=== PATIENT | female | born 1930 | race Caucasian/White ===

== ENCOUNTER 2018-07-03 19:06 | Emergency (ER) | payer MEDICARE, OTHER ==
[~2018-07-03 19:06] MED LIST: ACE500 PO; ACET-1966 PO; ACET-2043 PO; ACET500T68 PO; ASP325 PO; ASPI-1471 PO; ASPI-839 PO; ATOR10TA65 PO; ATR10 PO; AZI250 PO; BUDE10.2 INH; BUDE10.25 IH; BUDE3CAP6 PO; CALC-1 PO; CALC-478 PO; CALC600T59 PO; CLO75 PO; CYA1000 PO; CYAN100T31 PO; FLU30SYR8 IM ONLY; FLUT1DIS28 IH; FURO-45 PO; FURO20TA19 PO; GABA-490 PO; GABA-547 PO; LOR5 PO; LOR5/325 PO; LOSA100T69 PO; METH4TAB66 PO; METO25TA23 PO; METO25TA93 PO; MIRA50TA PO; MON10 PO; MULT-1 PO; MULT-27 PO; OMEP-125 PO; OMEP-153 PO; ONDA4TAB PO; ONDA4TAB97 PO; OXYB10TA16 PO; OXYB10TA21 PO; OXYB15TA14 PO; OXYGEN INH; OXYGENHOME INH; PRED-1 PO; RIVA1PAT9 TD; RIVA3CAP PO; SCOT TD; SPIR25TA76 PO; SPIR25TA80 PO; SULF500T48 PO; TRAM-420 PO; VALS-25 PO
--- NOTE | 2018-07-03 19:47 | ER Report ---
History and Physical Time Seen By MD: 19:44 Hx. of Stated Complaint: just feel drained HPI/ROS CHIEF COMPLAINT: Not feeling well HISTORY OF PRESENT ILLNESS: This is a 7-year-old female presents to the emergency department for not feeling well. Patient states that about 4:30 this afternoon she was sitting in her lazy boy chair, suddenly just did not "feel very well" patient states she stood up and became lightheaded but never did collapse's affect town and ultimately decided to come in for further evaluation. Patient denies chest pain or shortness of breath. No nausea or vomiting. No fevers or chills. She states she does have a very mild headache but otherwise no other concerns. Her blood pressure at the bedside is 196/93. REVIEW OF SYSTEMS: Constitutional: No fever, no chills. Eyes: No discharge. ENT: No sore throat. Cardiovascular: No chest pain, no palpitations. Respiratory: No cough, no shortness of breath. Gastrointestinal: No abdominal pain, no vomiting. Genitourinary: No hematuria. Musculoskeletal: No back pain. Skin: No rashes. Neurological: As above. Allergies: Coded Allergies: No Known Allergies (Verified Allergy, Mild, 07/03/18) Home Meds Active Scripts Rivastigmine Tartrate (RIVASTIGMINE) 3 Mg Capsule, 1 CAP PO BID for 90 Days, #180 CAPSULE 4 Refills Prov:JAMSHID VITAL MD 05/29/18 Budesonide (BUDESONIDE EC) 3 Mg Capdr...er, 1 CAP PO DAILY, #90 CAP Prov:JAMSHID VITAL MD 05/28/18 Sulfasalazine (SULFASALAZINE) 500 Mg Tablet, 1 TAB PO BID, #60 TAB 3 Refills PRN Prov:JAMSHID VITAL MD 01/22/18 Reported Medications Aspirin (ASPIR 81) 81 Mg Tablet.dr, 1 TAB PO QDAY 09/08/17 Calcium Carbonate/Vitamin D3 (CALTRATE 600 + D TABLET) 1 Each Tablet, 1 EACH PO DAILY 05/26/17 Acetaminophen (TYLENOL EXTRA STRENGTH) 500 Mg Tablet, 2 TAB PO BID 05/26/17 Mu-Vits-Min Th/Lycopene/Lutein (CENTRUM SILVER TABLET) 1 Each Tablet, 1 EACH PO QDAY 05/26/17 Oxygen (OXYGEN) Inha, 2.5 L INH HS, L 04/19/17 Metoprolol Tartrate (METOPROLOL TARTRATE) 25 Mg Tablet, 1 TAB PO BID 04/19/17 Past Medical/Surgical History The patient has a past medical and surgical history of TIAs, murmurs, hypertension, COPD, wears oxygen at night, GERD, gallbladder disease, frequent u rination, carpal tunnel syndrome, arthritis, back pain, wears glasses, mild hearing loss, ovarian cyst removal, left oophorectomy, tonsillectomy, cataract surgery. Reviewed Nurses Notes: Yes Hx Smoking: No Smoking Status: Never Smoker Exposure to Second Hand Smoke?: No Hx Substance Use Disorder: No Hx Alcohol Use: No Constitutional Vital Sign - Last 24 Hours 07/03/18 07/03/18 07/03/18 07/03/18 19:20 19:45 20:00 20:30 Pulse 59 54 53 57 Resp 12 12 11 B/P (MAP) 205/87 207/88 (127) 196/93 (127) 199/55 (103) Pulse Ox 93 100 100 O2 Delivery Room Air Room Air Room Air 07/03/18 07/03/18 07/03/18 07/03/18 21:00 21:10 21:30 21:35 Pulse 55 62 62 Resp 15 14 14 B/P (MAP) 192/66 (108) Pulse Ox 99 99 99 O2 Delivery Room Air Room Air Room Air 07/03/18 07/03/18 21:53 22:05 Pulse 64 Resp 28 B/P (MAP) 160/84 (109) Pulse Ox 98 O2 Delivery Room Air Physical Exam General Appearance: The patient is alert, has no immediate need for airway protection and no signs of toxicity. Eyes: Pupils equal and round no pallor or injection. EOMs intact. ENT, Mouth: Mucous membranes are moist. Respiratory: There are no retractions, lungs are clear to auscultation. Cardiovascular: Regular rate and rhythm, no murmurs, clicks or rubs. Gastrointestinal: Abdomen is soft and non tender, no masses, bowel sounds normal. Neurological: Alert and oriented 4. Moving all extremities. Following all commands. No focal neuro deficits. Skin: Warm and dry, no rashes. Musculoskeletal: Neck is supple non tender. Extremities are nontender, nonswollen and have full range of motion. DIFFERENTIAL DIAGNOSIS: After history and physical exam differential diagnosis was considered for viral syndrome, hypertension, TIA, CVA. Medical Decision Making Data Points Result Diagram: 07/03/18205307/03/182053 Laboratory Hematology Test 07/03/18 20:54 Red Blood Count 4.22 M/uL (4.17-5.56) Mean Corpuscular Volume 95.2 fL (80.0-96.0) Mean Corpuscular Hemoglobin 31.9 pg (26.0-33.0) Mean Corpuscular Hemoglobin Concent 33.5 g/dL (32.0-36.0) Red Cell Distribution Width 15.1 % (11.5-14.5) Mean Platelet Volume 8.1 fL (7.2-11.1) Neutrophils (%) (Auto) 45.4 % (39.4-72.5) Lymphocytes (%) (Auto) 39.4 % (17.6-49.6) Monocytes (%) (Auto) 11.8 % (4.1-12.4) Eosinophils (%) (Auto) 2.0 % (0.4-6.7) Basophils (%) (Auto) 1.4 % (0.3-1.4) Nucleated RBC Relative Count (auto) 0.1 /100WBC Neutrophils # (Auto) 2.7 K/uL (2.0-7.4) Lymphocytes # (Auto) 2.3 K/uL (1.3-3.6) Monocytes # (Auto) 0.7 K/uL (0.3-1.0) Eosinophils # (Auto) 0.1 K/uL (0.0-0.5) Basophils # (Auto) 0.1 K/uL (0.0-0.1) Nucleated RBC Absolute Count (auto) 0.01 K/uL Sodium Level 138 mmol/L (137-145) Potassium Level 4.0 mmol/L (3.5-5.0) Chloride Level 98 mmol/L (98-107) Carbon Dioxide Level 32 mmol/L (22-31) Blood Urea Nitrogen 19 mg/dl (7-18) Creatinine 0.70 mg/dl (0.52-1.04) Glomerular Filtration Rate Calc > 60.0 Random Glucose 81 mg/dl (75-110) Calcium Level 9.1 mg/dl (8.4-10.2) Total Bilirubin 0.6 mg/dl (0.2-1.3) Aspartate Amino Transf (AST/SGOT) 45 U/L (0-35) Alanine Aminotransferase (ALT/SGPT) 32 U/L (0-56) Alkaline Phosphatase 111 U/L (0-126) Troponin I 0.015 ng/ml Total Protein 7.6 g/dl (6.3-8.2) Albumin 3.8 g/dl (3.5-5.0) Chemistry Test 07/03/18 20:54 White Blood Count 6.0 k/uL (4.5-11.0) Red Blood Count 4.22 M/uL (4.17-5.56) Hemoglobin 13.5 g/dL (12.0-16.0) Hematocrit 40.2 % (34.0-47.0) Mean Corpuscular Volume 95.2 fL (80.0-96.0) Mean Corpuscular Hemoglobin 31.9 pg (26.0-33.0) Mean Corpuscular Hemoglobin Concent 33.5 g/dL (32.0-36.0) Red Cell Distribution Width 15.1 % (11.5-14.5) Platelet Count 227 K/uL (150-450) Mean Platelet Volume 8.1 fL (7.2-11.1) Neutrophils (%) (Auto) 45.4 % (39.4-72.5) Lymphocytes (%) (Auto) 39.4 % (17.6-49.6) Monocytes (%) (Auto) 11.8 % (4.1-12.4) Eosinophils (%) (Auto) 2.0 % (0.4-6.7) Basophils (%) (Auto) 1.4 % (0.3-1.4) Nucleated RBC Relative Count (auto) 0.1 /100WBC Neutrophils # (Auto) 2.7 K/uL (2.0-7.4) Lymphocytes # (Auto) 2.3 K/uL (1.3-3.6) Monocytes # (Auto) 0.7 K/uL (0.3-1.0) Eosinophils # (Auto) 0.1 K/uL (0.0-0.5) Basophils # (Auto) 0.1 K/uL (0.0-0.1) Nucleated RBC Absolute Count (auto) 0.01 K/uL Glomerular Filtration Rate Calc > 60.0 Calcium Level 9.1 mg/dl (8.4-10.2) Total Bilirubin 0.6 mg/dl (0.2-1.3) Aspartate Amino Transf (AST/SGOT) 45 U/L (0-35) Alanine Aminotransferase (ALT/SGPT) 32 U/L (0-56) Alkaline Phosphatase 111 U/L (0-126) Troponin I 0.015 ng/ml Total Protein 7.6 g/dl (6.3-8.2) Albumin 3.8 g/dl (3.5-5.0) EKG/Imaging EKG Interpretation 12 lead EKG: Time of EKG 1937. Rhythm: Sinus bradycardia, ventricular rate 58 bpm. Borderline 1st degree AV block. [place]: normal QRS: normal ST segments: No ST depression or elevation identified. When compared to the 05/21/2017 EKG the current EKG showing inverted T waves in V1, V2 otherwise no other significant changes. Imaging CHEST PA AND LAT COMPARISONS: July 23, 2016 ADDITIONAL PERTINENT HISTORY: Hypertension FINDINGS: Cardiomediastinal silhouette: Negative. Pulmonary vasculature: Negative. Lung sellers: Minimal bibasilar regions of scarring. Otherwise negative Pleural spaces: Negative. Osseous structures: Scoliotic curvature convex to the right centered along the mid thoracic spine and convex to the left upper lumbar spine. Surrounding soft tissues: Negative. IMPRESSION: No evidence of acute cardiopulmonary disease. Report Dictated By: Heriberto Smith MD at 07/03/2018 9:19 PM Report E-Signed By: Heriberto Smith MD at 07/03/2018 9:20 PM WSN:[email or web address] ED Course/Re-evaluation Clinical Indication for ER IV: IV Access ED Course The patient was admitted to a room. A history and physical were obtained. Differential diagnoses were considered. An IV was started. A CBC, CMP, troponin were obtained. Lab studies unremarkable. Negative troponin. EKG showing sinus bradycardia otherwise unremarkable. Two-view chest x-ray negative for any acute cardiopulmonary process. I did review the laboratory results, imaging results and EKG with the patient and her . Patient was noted to be hypertensive in the ER, was given 10 mg IV labetalol, patient responded very well to this, her systolic blood pressure upon discharge was 160. Patient did state that she is feeling a little bit better. I did tell the patient and her that this could be secondary to hypertension and did recommend following up with Dr. Vital for reevaluation. The patient and her both expressed understanding, they were discharged home. Patient had no other questions or concerns at this time. Decision to Disposition Date: Jul 03, 2018 Decision to Disposition Time: 22:00 Depart Departure Latest Vital Signs Vital Signs Date Time Temp Pulse Resp B/P (MAP) Pulse Ox O2 Delivery O2 Flow Rate FiO2 07/03/18 22:05 64 28 98 Room Air 07/03/18 21:53 160/84 (109) Impression: Primary Impression: Hypertension Condition: Improved Disposition: HOME OR SELF-CARE Referrals: JAMSHID VITAL MD (PCP) Patient Instructions: Hypertension (ED) Additional Instructions: There were no concerning findings with the blood work today, the EKG and chest x-ray did not show anything concerning. You did have an elevated blood pressure. I would recommend calling Dr. Vital's office in the next couple of days for a follow up appointment as soon as you can for reevaluation as well as a discussion about your elevated blood pressure. Continue with your diet. Drink plenty of water. Get plenty of rest. Return to the ED for any other concerns or worsening symptoms. Problem Qualifiers Primary Impression: Hypertension Hypertension type: unspecified Qualified Codes: I10 - Essential (primary) hypertension AMARI BARNETT CANE SPLICER-BC Jul 03, 2018 19:47
--- NOTE | 2018-07-03 20:00 | EKG ---
[place] [facility] [place] NAME: BRENNAN SAGASTUME : [id number] MR: [id number] V: [id number] EXAM DATE: ORDERING PHYSICIAN: ABAD ELKINS TECHNOLOGIST: CHERI Jacobs Reason : CARDIAC Blood Pressure : / mmHG Vent. Rate : 058 BPM Atrial Rate : 234 BPM P-R Int : 242 ms QRS Dur : 108 ms QT Int : 422 ms P-R-T Axes : 083 016 044 degrees QTc Int : 414 ms Sinus rhythm with first degree AV block Decreased R wave progression anteriorly Relatively tall T waves U waves present Abnormal ECG Confirmed by THAIS CM ([id number]) on 07/04/2018 5:57:01 AM Referred By: Confirmed By:THAIS CM
[2018-07-03] MEDS ORDERED: LABETALOL HCL 100 MG/20ML VIAL IVP ONE (20:10)
[2018-07-03 21:03] LABS: PLATELET COUNT, AUTOMATED 227 K/uL (150-450)
--- NOTE | 2018-07-03 21:23 | RADIOLOGY IMAGING REPORT ---
FACILITY: [facility] [place] PATIENT NAME: Yareli Mcpherson : 1930 MR: [id number] V: [id number] EXAM DATE: ORDERING PHYSICIAN: AMARI BARNETT TECHNOLOGIST: Location: [facility] Patient: Yareli Mcpherson : 1930 Visit/Account:[id number] Date of Sevice: 07/03/2018 CHEST PA AND LAT COMPARISONS: July 23, 2016 ADDITIONAL PERTINENT HISTORY: Hypertension FINDINGS: Cardiomediastinal silhouette: Negative. Pulmonary vasculature: Negative. Lung sellers: Minimal bibasilar regions of scarring. Otherwise negative Pleural spaces: Negative. Osseous structures: Scoliotic curvature convex to the right centered along the mid thoracic spine an d convex to the left upper lumbar spine. Surrounding soft tissues: Negative. IMPRESSION: No evidence of acute cardiopulmonary disease. Report Dictated By: Heriberto Smith MD at 07/03/2018 9:19 PM Report E-Signed By: Heriberto Smith MD at 07/03/2018 9:20 PM WSN:[id number]
[2018-07-03 21:53] VITALS: BP 160/84
== END 2018-07-03 22:13 | disposition home or self-care (01) ==
LOC: ER 20:03
DX: I10 Essential (primary) hypertension (principal); R00.1 Bradycardia, unspecified; I44.0 Atrioventricular block, first degree
CPT/HCPCS: 71046; 84484; 85025; 93005; 96374; 99284; J3490; 82040; 82247; 82310; 82374; 82435; 82565; 82947; 84075; 84132; 84155; 84295; 84450; 84460; 84520

== ENCOUNTER → 2018-07-26 | Outpatient (CLI) | payer MEDICARE, OTHER ==
[~2018-07-26] MED LIST changes: +FLU180SY11 IM; +LISI2.5T60 PO
== END ==
LOC: LAB 10:02
PROVIDERS: ATTEND Family Medicine
DX: I10 Essential (primary) hypertension (principal)
CPT/HCPCS: 36415; 82310; 82374; 82435; 82565; 82947; 84132; 84295; 84520

== ENCOUNTER 2018-09-16 09:03 | Emergency (ER) | payer MEDICARE, OTHER ==
[~2018-09-16 09:03] MED LIST changes: +LISI-362 PO; +LISI20TA29 PO; -LOSA100T69 PO; +LOSA100T75 PO; +PNEU0.5D3 IM
--- NOTE | 2018-09-16 09:09 | ER Report ---
History and Physical Time Seen By MD: 09:11 HPI/ROS CHIEF COMPLAINT: Fall HISTORY OF PRESENT ILLNESS: Patient is an 88-year-old female with multiple medical problems who [place] after supper[place]. Patient did hit the back of her head also has some right wrist pain and right distal tib-fib pain but is ambulatory. She rates the pain as a "annoyance". Patient denies being on any blood thinners. She denies any chest pain or shortness of breath. She denies any abdominal or pelvic pain. She denies hip pain. REVIEW OF SYSTEMS: Respiratory: No cough, no dyspnea. Cardiovascular: No chest pain, no palpitations. Gastrointestinal: No vomiting, no abdominal pain. Musculoskeletal: Right wrist, right tib-fib pain Allergies: Coded Allergies: No Known Allergies (Verified Allergy, Mild, 07/03/18) Home Meds Active Scripts Lisinopril (LISINOPRIL) 20 Mg Tablet, 20 MG PO QDAY for 90 Days, #90 TAB 4 Ref ills Prov:JAMSHID VITAL MD 09/10/18 Sulfasalazine (SULFASALAZINE) 500 Mg Tablet, 1 TAB PO BID for 90 Days, #180 TAB 4 Refills PRN Prov:JAMSHID VITAL MD 08/28/18 Rivastigmine Tartrate (RIVASTIGMINE) 3 Mg Capsule, 1 CAP PO BID for 90 Days, #180 CAPSULE 4 Refills Prov:JAMSHID VITAL MD 05/29/18 Budesonide (BUDESONIDE EC) 3 Mg Capdr...er, 1 CAP PO DAILY, #90 CAP Prov:JAMSHID VITAL MD 05/28/18 Reported Medications Aspirin (ASPIR 81) 81 Mg Tablet.dr, 1 TAB PO QDAY 09/08/17 Calcium Carbonate/Vitamin D3 (CALTRATE 600 + D TABLET) 1 Each Tablet, 1 EACH PO DAILY 05/26/17 Acetaminophen (TYLENOL EXTRA STRENGTH) 500 Mg Tablet, 2 TAB PO BID 05/26/17 Mu-Vits-Min Th/Lycopene/Lutein (CENTRUM SILVER TABLET) 1 Each Tablet, 1 EACH PO QDAY 05/26/17 Oxygen (OXYGEN) Inha, 2.5 L INH HS, L 04/19/17 Metoprolol Tartrate (METOPROLOL TARTRATE) 25 Mg Tablet, 1.5 TAB PO BID 04/19/17 Discontinued Scripts Lisinopril (LISINOPRIL) 10 Mg Tablet, 1 TAB PO QDAY for 90 Days, #90 TAB Prov:JAMSHID VITAL MD 08/01/18 Past Medical/Surgical History Medical history for dementia, neuropathy, TIA 2009, vertigo, hyperlipidemia, hypertension, chronic lower extremity edema, asthma, COPD, and cholelithiasis with cholecystectomy, colitis, irritable bowel syndrome, carpal tunnel syndrome, osteoarthritis, left ovary removed, breast biopsy, benign. Patient has a pulse form which is DO NOT RESUSCITATE, DO NOT INTUBATE with selective medical treatment Hx Smoking: No Smoking Status: Never Smoker Exposure to Second Hand Smoke?: No Hx Substance Use Disorder: No Hx Alcohol Use: No Constitutional Vital Sign - Last 24 Hours 09/16/18 09/16/18 09/16/18 09/16/18 09:03 09:09 09:10 09:18 Temp 98.3 Pulse 55 72 Resp 20 B/P (MAP) 211/122 211/122 (151) 192/99 (130) Pulse Ox 83 O2 Delivery Room Air 09/16/18 09/16/18 09/16/18 09:33 10:00 10:03 Pulse 59 58 B/P (MAP) 200/91 (127) Pulse Ox 99 Physical Exam General Appearance: The patient is alert, has no immediate need for airway protection and no current signs of toxicity. Eyes: Pupils equal and round no injection. Extraocular muscles are intact and symmetrical Respiratory: Chest is non tender, lungs are clear to auscultation. Cardiac: regular rate and rhythm Gastrointestinal: Abdomen is soft and non tender, no masses, bowel sounds normal. Musculoskeletal: Neck: Neck is supple and non tender. Extremities have full range of motion and has large hematoma to the distal right anterior tibial area there is also bruising to the right wrist. Skin: No rashes [ ] Medical Decision Making EKG/Imaging Imaging FACILITY: [facility] - [place] PATIENT NAME: Yareli Mcpherson : 1930 MR: [id number] V: [id number] EXAM DATE: [id number] ORDERING PHYSICIAN: CHA LONGO TECHNOLOGIST: Location: [facility] [place] Patient: Yareli Mcpherson : 1930 Visit/Account:[id number] Date of Sevice: 09/16/2018 EXAMINATION: CT Head without intravenous contrast CT Cervical spine without intravenous contrast HISTORY: Trauma. TECHNIQUE: Head: Axial images were obtained from the skull base to the vertex without intravenous contrast. Sagittal and coronal reformatted images are also submitted. Cervical spine: Axial images were obtained from the skull base through the upper thoracic spine without IV contrast administration. Coronal and sagittal reformatted images were obtained from the axial source data. One of the following dose optimization techniques was utilized in the performance of this exam: Automated exposure control; adjustment of the mA and/or kV according to the patient's size; or use of an iterative reconstruction technique. Specific details can be referenced in the facility's radiology CT exam operational policy. COMPARISON: Head CT dated 01/08/2017. Brain MRI dated 05/21/2017. FINDINGS: HEAD: Brain volume: Normal. Ventricles: Negative. Acute ischemic changes: None. Hemorrhage: None. Masses / edema: None. Yadav-white: Negative. 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 Vessels: Calcified plaque in the carotid siphons. Normal density in the dural venous sinuses. Extra-axial: Stable small right parafalcine calcified meningioma. Calvarium / skull base: Negative. Visualized sinuses / orbits: Moderate mucosal thickening in the left maxillary sinus. Rightward nasal septal deviation. CERVICAL SPINE: Alignment: Mild convex leftward curvature. Cranio-cervical junction: Mild degenerative changes with normal alignment. Otherwise negative. Vertebral bodies: Negative. Posterior elements: Multilevel facet hypertrophy. Hardware: None. Disc Spaces: Multilevel degenerative disc disease. Soft tissues: 1.3 cm right thyroid nodule. Visualized upper chest: Negative. IMPRESSION: 1. No acute intracranial abnormality. 2. No acute cervical spine fracture. 3. See above report for chronic findings. Report Dictated By: Anton So MD at 09/16/2018 10:18 AM Report E-Signed By: Anton So MD at 09/16/2018 10:27 AM WSN:[id number] FACILITY: [facility] [place] PATIENT NAME: Yareli Mcpherson : 1930 MR: [id number] V: [id number] EXAM DATE: ORDERING PHYSICIAN: CHA LONGO TECHNOLOGIST: Location: [facility] [place] Patient: Yareli Mcpherson : 1930 Visit/Account:[id number] Date of Sevice: 09/16/2018 WRIST RIGHT MIN 3 VIEW TIBIA FIBULA RIGHT Indication: Right wrist pain. Right leg pain. Comparison: None available. Findings: Right wrist: 3 views. No evidence of acute fracture, dislocation, or radiopaque foreign body. Widening of the scapholunate joint measuring 6 to 7 mm. Joint space narrowing and subchondral sclerosis involving the proximal scaphoid and distal radius. Mild osteoarthritis of the triscaphe and 1st carpometacarpal joints. Diffuse osteopenia. Right tib-fib: 2 views. No evidence of acute fracture, dislocation, or radiopaque foreign body. Osteoarthritis of the right knee and right ankle. Small calcaneal bone spurs. Diffuse osteopenia. Impression: 1. No acute osseous abnormality of the right wrist or right knee. 2. Degenerative changes in the right wrist, knee, and ankle. 3. Diffuse osteopenia. Report Dictated By: Anton So MD at 09/16/2018 10:27 AM Report E-Signed By: Anton So MD at 09/16/2018 10:31 AM WSN:[id number] ED Course/Re-evaluation ED Course 09/16/2018 9:18:27 am at this time will be to CT head and C-spine we'll also image her right wrist and right tib-fib. Decision to Disposition Date: Sep 16, 2018 Decision to Disposition Time: 11:22 Depart Departure Latest Vital Signs Vital Signs Date Time Temp Pulse Resp B/P (MAP) Pulse Ox O2 Delivery O2 Flow Rate FiO2 09/16/18 10:03 58 99 09/16/18 10:00 200/91 (127) 09/16/18 09:09 98.3 20 Room Air Impression: Primary Impression: Wrist contusion Additional Impression: Contusion of leg, right Condition: Improved Disposition: HOME OR SELF-CARE Referrals: JAMSHID VITAL MD (PCP) follow for next routine Patient Instructions: Contusion in Adults (ED) Problem Qualifiers Primary Impression: Wrist contusion Encounter type: initial encounter Laterality: right Qualified Codes: S60.211A - Contusion of right wrist, initial encounter Additional Impression: Contusion of leg, right Encounter type: initial encounter Qualified Codes: S80.11XA - Contusion of right lower leg, initial encounter KASARDA,CHA C MD Sep 16, 2018 09:09
[2018-09-16] MEDS ORDERED: DIPHTH/TETANUS/ACEL. PERTUSSIS IM ONLY ONE (09:20)
--- NOTE | 2018-09-16 10:30 | RADIOLOGY IMAGING REPORT ---
FACILITY: [facility] - [place] PATIENT NAME: Yareli Mcpherson : 1930 MR: [id number] V: [id number] EXAM DATE: ORDERING PHYSICIAN: CHA LONGO TECHNOLOGIST: Location: [facility] - [place] Patient: Yareli Mcpherson : 1930 Visit/Account:[id number] Date of Sevice: 09/16/2018 EXAMINATION: CT Head without intravenous contrast CT Cervical spine without intravenous contrast HISTORY: Trauma. TECHNIQUE: Head: Axial images were obtained from the skull base to the vertex without intravenous contrast. Sa gittal and coronal reformatted images are also submitted. Cervical spine: Axial images were obtained from the skull base through the upper thoracic spine with out IV contrast administration. Coronal and sagittal reformatted images were obtained from the axial source data. One of the following dose optimization techniques was utilized in the performance of this exam: Autom ated exposure control; adjustment of the mA and/or kV according to the patient's size; or use of an i terative reconstruction technique. Specific details can be referenced in the facility's radiology C T exam operational policy. COMPARISON: Head CT dated 01/08/2017. Brain MRI dated 05/21/2017. FINDINGS: HEAD: Brain volume: Normal. Ventricles: Negative. Acute ischemic changes: None. Hemorrhage: None. Masses / edema: None. Yadav-white: Negative. 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 Vessels: Calcified plaque in the carotid siphons. Normal density in the dural venous sinuses. Extra-axial: Stable small right parafalcine calcified meningioma. Calvarium / skull base: Negative. Visualized sinuses / orbits: Moderate mucosal thickening in the left maxillary sinus. Rightward nasa l septal deviation. CERVICAL SPINE: Alignment: Mild convex leftward curvature. Cranio-cervical junction: Mild degenerative changes with normal alignment. Otherwise negative. Vertebral bodies: Negative. Posterior elements: Multilevel facet hypertrophy. Hardware: None. Disc Spaces: Multilevel degenerative disc disease. Soft tissues: 1.3 cm right thyroid nodule. Visualized upper chest: Negative. IMPRESSION: 1. No acute intracranial abnormality. 2. No acute cervical spine fracture. 3. See above report for chronic findings. Report Dictated By: Anton So MD at 09/16/2018 10:18 AM Report E-Signed By: Anton So MD at 09/16/2018 10:27 AM WSN:[id number]
--- NOTE | 2018-09-16 10:30 | RADIOLOGY IMAGING REPORT ---
FACILITY: [facility] - [place] PATIENT NAME: Yareli Mcpherson : 1930 MR: [id number] V: [id number] EXAM DATE: ORDERING PHYSICIAN: CHA LONGO TECHNOLOGIST: Location: [facility] - [place] Patient: Yareli Mcpherson : 1930 Visit/Account:[id number] Date of Sevice: 09/16/2018 EXAMINATION: CT Head without intravenous contrast CT Cervical spine without intravenous contrast HISTORY: Trauma. TECHNIQUE: Head: Axial images were obtained from the skull base to the vertex without intravenous contrast. Sa gittal and coronal reformatted images are also submitted. Cervical spine: Axial images were obtained from the skull base through the upper thoracic spine with out IV contrast administration. Coronal and sagittal reformatted images were obtained from the axial source data. One of the following dose optimization techniques was utilized in the performance of this exam: Autom ated exposure control; adjustment of the mA and/or kV according to the patient's size; or use of an i terative reconstruction technique. Specific details can be referenced in the facility's radiology C T exam operational policy. COMPARISON: Head CT dated 01/08/2017. Brain MRI dated 05/21/2017. FINDINGS: HEAD: Brain volume: Normal. Ventricles: Negative. Acute ischemic changes: None. Hemorrhage: None. Masses / edema: None. Yadav-white: Negative. 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 Vessels: Calcified plaque in the carotid siphons. Normal density in the dural venous sinuses. Extra-axial: Stable small right parafalcine calcified meningioma. Calvarium / skull base: Negative. Visualized sinuses / orbits: Moderate mucosal thickening in the left maxillary sinus. Rightward nasa l septal deviation. CERVICAL SPINE: Alignment: Mild convex leftward curvature. Cranio-cervical junction: Mild degenerative changes with normal alignment. Otherwise negative. Vertebral bodies: Negative. Posterior elements: Multilevel facet hypertrophy. Hardware: None. Disc Spaces: Multilevel degenerative disc disease. Soft tissues: 1.3 cm right thyroid nodule. Visualized upper chest: Negative. IMPRESSION: 1. No acute intracranial abnormality. 2. No acute cervical spine fracture. 3. See above report for chronic findings. Report Dictated By: Anton So MD at 09/16/2018 10:18 AM Report E-Signed By: Anton So MD at 09/16/2018 10:27 AM WSN:[id number]
--- NOTE | 2018-09-16 10:35 | RADIOLOGY IMAGING REPORT ---
FACILITY: [facility] - [place] PATIENT NAME: Yareli Mcpherson : 1930 MR: [id number] V: [id number] EXAM DATE: ORDERING PHYSICIAN: CHA LONGO TECHNOLOGIST: Location: [facility] Patient: Yareli Mcpherson : 1930 Visit/Account:[id number] Date of Sevice: 09/16/2018 WRIST RIGHT MIN 3 VIEW TIBIA FIBULA RIGHT Indication: Right wrist pain. Right leg pain. Comparison: None available. Findings: Right wrist: 3 views. No evidence of acute fracture, dislocation, or radiopaque foreign body. 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 Joint space narrowing and subchondral sclerosis invo lving the proximal scaphoid and distal radius. 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 Diffuse osteopenia. Right tib-fib: 2 views. No evidence of acute fracture, dislocation, or radiopaque foreign body. 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 Small calcaneal bone spurs. Diffuse osteopenia. Impression: 1. No acute osseous abnormality of the right wrist or right knee. 2. Degenerative changes in the right wrist, knee, and ankle. 3. Diffuse osteopenia. Report Dictated By: Anton So MD at 09/16/2018 10:27 AM Report E-Signed By: Anton So MD at 09/16/2018 10:31 AM WSN:[id number]
--- NOTE | 2018-09-16 10:35 | RADIOLOGY IMAGING REPORT ---
FACILITY: [facility] PATIENT NAME: Yareli Mcpherson : 1930 MR: [id number] V: [id number] EXAM DATE: ORDERING PHYSICIAN: CHA LONGO TECHNOLOGIST: Location: [facility] Patient: Yareli Mcpherson : 1930 Visit/Account:[id number] Date of Sevice: 09/16/2018 WRIST RIGHT MIN 3 VIEW TIBIA FIBULA RIGHT Indication: Right wrist pain. Right leg pain. Comparison: None available. Findings: Right wrist: 3 views. No evidence of acute fracture, dislocation, or radiopaque foreign body. 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 Joint space narrowing and subchondral sclerosis invo lving the proximal scaphoid and distal radius. 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 Diffuse osteopenia. Right tib-fib: 2 views. No evidence of acute fracture, dislocation, or radiopaque foreign body. 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 Small calcaneal bone spurs. Diffuse osteopenia. Impression: 1. No acute osseous abnormality of the right wrist or right knee. 2. Degenerative changes in the right wrist, knee, and ankle. 3. Diffuse osteopenia. Report Dictated By: Anton So MD at 09/16/2018 10:27 AM Report E-Signed By: Anton So MD at 09/16/2018 10:31 AM WSN:[id number]
[2018-09-16 11:00] VITALS: BP 203/85
== END 2018-09-16 11:42 | disposition home or self-care (01) ==
LOC: ER 09:26
DX: S60.211A Contusion of right wrist, initial encounter (principal); S80.11XA Contusion of right lower leg, initial encounter; W00.0XXA Fall on same level due to ice and snow, initial encounter
CPT/HCPCS: 70450; 72125; 90471; 90715; 99284

== ENCOUNTER 2018-10-05 12:58 | Day surgery (SDC) | payer MEDICARE, OTHER ==
[~2018-10-05] VITALS: Ht 162.6 cm; Wt 79.8 kg
[2018-10-05] MEDS ORDERED: NORMOSOL R SOLN(*) 1000 ML BAG 1,000 ML IV PRN (13:05)
[2018-10-05] MEDS ORDERED: MIDAZOLAM 2 MG/2 ML VIAL IVP PRN (13:05)
[2018-10-05] MEDS ORDERED: LIDOCAINE/SOD BICARB 8.4% SYR ID ONE (13:05)
[2018-10-05] MEDS ORDERED: FAMOTIDINE 20 MG TAB PO ONE (13:55)
[2018-10-05 14:22] VITALS: BP 190/81
[2018-10-05] MEDS ORDERED: fentaNYL CITR 100 MCG/2 ML AMP ONE ×2 (16:11→17:18)
[2018-10-05] MEDS ORDERED: LIDOCAINE 2% IV 100 MG/5ML SYR ONE (16:12)
[2018-10-05] MEDS ORDERED: PROPOFOL EMUL(*) 10MG/ML 20 ML 20 ML ONE (16:13)
[2018-10-05] MEDS ORDERED: DEXAMETHASONE SOD 4 MG/ML VIAL ONE (16:22)
[2018-10-05] MEDS ORDERED: ONDANSETRON 4 MG/2 ML VIAL ONE (16:23)
--- NOTE | 2018-10-05 17:07 | Short(Outpt) Discharge Summary ---
Discharge Summary Reason for Hosp/Final Diag: (1) Traumatic hematoma of right lower leg with infection Status: Chronic Hospital Course & Plan: Right lower leg hematoma evacuated and skin debrided without problems. Departure Discharge to: Home, Self Care Discharge Instructions Home Meds Active Scripts Lisinopril (LISINOPRIL) 20 Mg Tablet, 20 MG PO QDAY for 90 Days, #90 TAB 4 Refills Prov:JAMSHID VITAL MD 09/10/18 Sulfasalazine (SULFASALAZINE) 500 Mg Tablet, 1 TAB PO BID for 90 Days, #180 TAB 4 Refills PRN Prov:JAMSHID VITAL MD 08/28/18 Rivastigmine Tartrate (RIVASTIGMINE) 3 Mg Capsule, 1 CAP PO BID for 90 Days, #180 CAPSULE 4 Refills Prov:JAMSHID VITAL MD 05/29/18 Budesonide (BUDESONIDE EC) 3 Mg Capdr...er, 1 CAP PO DAILY, #90 CAP Prov:JAMSHID VITAL MD 05/28/18 Reported Medications Aspirin (ASPIR 81) 81 Mg Tablet., 1 TAB PO QDAY 09/08/17 Calcium Carbonate/Vitamin D3 (CALTRATE 600 + D TABLET) 1 Each Tablet, 1 EACH PO DAILY 05/26/17 Acetaminophen (TYLENOL EXTRA STRENGTH) 500 Mg Tablet, 2 TAB PO BID 05/26/17 Mu-Vits-Min Th/Lycopene/Lutein (CENTRUM SILVER TABLET) 1 Each Tablet, 1 EACH PO QDAY 05/26/17 Oxygen (OXYGEN) Inha, 2.5 L INH HS, L 04/19/17 Metoprolol Tartrate (METOPROLOL TARTRATE) 25 Mg Tablet, 1.5 TAB PO BID 04/19/17 Follow up Referrals: General Surgery - 10/08/18 @ Surgery, General with JET TORRES MD You have a follow up appointment scheduled with Dr. Torres on 10/08/18, at 4:30pm. Diet: Regular Activity: As Tolerated Special Instructions: Leave the dressing and JAN wrap in place and don't get it wet. I'll take everything down and show you how to care for the wound when I see you back in my office on 10/08/18, at 4:30pm. Problem Qualifiers (1) Traumatic hematoma of right lower leg with infection: Encounter type: initial encounter Qualified Codes: S80.11XA - Contusion of right lower leg, initial encounter; L08.9 - Local infection of the skin and subcutaneous tissue, unspecified JET TORRES MD Oct 05, 2018 17:07
--- NOTE | 2018-10-05 17:14 | Post Operative Progress Note ---
Post Operative Progress Note Date: Oct 05, 2018 Time: 17:07 Surgeon: Jeff Dictation number: [id number] Anesthesia: LMA by Dr. Fabian Pre-Op Diagnosis: Right lower leg infected hematoma Post-Op Diagnosis: DEYANIRA Findings: C/W dx Procedure(s): Evacuation of RLE hematoma Debridement of skin Specimen Removed:(May be N/A): None Complications: None Fluids: See anesthesia record Estimated Blood Loss: Minimal Date OP Note Dictated: Oct 05, 2018 Time OP Note Dictated: 17:11 JET TORRES MD Oct 05, 2018 17:14
[2018-10-05 18:05] VITALS: BP 182/83
--- NOTE | 2018-10-05 18:30 | NUR ---
175 I AM RESUMING CARE OF PATIENT FROM PACU. SEE PACU NOTES. 175 PATIENTS IV BLEW. SHE WAS HAVING LOTS OF BLOOD FLOWING FROM HER IV. DRESSING WAS REMOVED FROM IV AND IV WAS DC'D. SHE HAD A BLOOD CLOT THAT HAD FORMED AND WAS BY THE DRESSING. HER HANDS WAS CLEAN. I HELD PRESSURE TO IV SITE FOR SEVERAL MINUTES TO STOP BLEEDING 175 IV SITE STOPPED BLEEDING. SHE WAS ABLE TO WASH AND CLEAN HER HANDS. COBAND WAS APPLIED TO IV SITE. PATIENT HAD A SMALL BRUISE AT IV SITE AND IT WAS TENDER. NO BLOOD CLOT WAS FORMING. 180 VITALS WERE TAKEN WITH PATIENT STANDING. SHE STATED SHE FELT WEAK AND WANTED TO SIT FOR AWHILE. PATIENT WORKED ON DRINKING HER ORANGE JUICE. 181 PATIENT STATED SHE WAS FEELING FINE AND SHE WAS READY TO GO HOME. PATIENT BEGAN GETTING DRESSED. 183 PATIENT WAS TAKEN OUT VIA WHEELCHAIR. SHE WAS ACCOMPANIED BY Pasha ARAMBULA AND HER . LUNGS ARE DIMINISHED THROUGHOUT. SHE REMAINS ON 2.5 LITERS O2. BOWEL SOUNDS ARE HYPOACTIVE. SHE STATES HER PAIN IS 2/10. SHE IS NO LONGER FEELING DIZZY. BLOOD PRESSURE REMAINS HIGH. SHE STATES HER PAIN IS 2/10 AND IT FEELS MUCH BETTER. SEE DISCHARGE ASSESSMENT.
--- NOTE | 2018-10-05 19:02 | OPERATIVE REPORT 1 ---
EVENT DATE: October 05, 2018 SURGEON: Carlos Aguilar MD ANESTHESIOLOGIST: Tesfaye Fabian MD ANESTHESIA: LMA. PREOPERATIVE DIAGNOSIS Right lower leg infected hematoma. POSTOPERATIVE DIAGNOSIS Right lower leg infected hematoma. PROCEDURE PERFORMED Evacuation of an infected right lower leg hematoma. COMPLICATIONS None. CONDITION Stable. BLOOD LOSS No new blood loss; however, there is approximately 15 mL of coagulated blood that I evacuated. INDICATIONS This is an 88-year-old female who slipped on the ice a couple of weeks ago and ended up with a right lower leg hematoma. She was seen in the ER where no other injuries were found in the hematoma. She was told to observe the hematoma and that it would resolve over time. However, when she saw her station worker today, he evaluated the hematoma and observed a foul smell and so consulted me. Upon looking at it, this hematoma had eroded through her very thin skin, and so I consulted her for evacuation of the hematoma and debridement of the wound. DESCRIPTION OF PROCEDURE Patient was brought to the operating room and placed supine on the operating table. LMA anesthesia was administered, and her right lower leg was prepped and draped in a sterile fashion. A timeout was completed. Basically with blunt dissection, I stripped the superficial skin that was overlying the hematoma away as it was very thin. This was basically like a glorified blood blister. Once the skin was stripped away, I evacuated the blood clot from underneath and then revealed healthy fat below this. I irrigated and dried the wound and packed it with a moist 4 x 4 gauze. I then covered it with dry 4 x 4 gauze and then wrapped her leg with Kerlix and an Westley wrap. She was awaked and LMA removed. She was transported to the recovery room in stable condition having tolerated the procedure without any apparent problems. LORENE
== END 2018-10-05 17:52 | disposition home or self-care (01) ==
LOC: OR 12:58
PROVIDERS: ATTEND Surgery
DX: L08.9 Local infection of the skin and subcutaneous tissue, unspecified (principal)
CPT/HCPCS: 10140; A9270; J1100; J2001; J2405; J2704; J3010

== ENCOUNTER → 2018-10-17 | Outpatient (CLI) | payer MEDICARE, OTHER ==
[2018-10-17 13:59] LABS: PLATELET COUNT, AUTOMATED 189 K/uL (150-450)
== END ==
LOC: LAB 13:32
PROVIDERS: ATTEND Family Medicine
DX: S81.801A Unspecified open wound, right lower leg, initial encounter (principal)
CPT/HCPCS: 36415; 82040; 82247; 82310; 82374; 82435; 82565; 82947; 84075; 84132; 84155; 84295; 84450; 84460; 84520; 85025

== ENCOUNTER 2018-10-19 00:28 | Day surgery (SDC) | payer MEDICARE, OTHER ==
[~2018-10-19] VITALS: Ht 162.6 cm; Wt 78.5 kg
[2018-10-19 12:40] VITALS: BP 153/76
[2018-10-19] MEDS ORDERED: LIDOCAINE/SOD BICARB 8.4% SYR ID ONE (13:00)
[2018-10-19] MEDS ORDERED: ceFAZolin(*) 1 GM VIAL 1 GM in NS(*) 0.9% 100 ML ADDVANT BAG 100 ML IVPB ONE (13:00)
[2018-10-19] MEDS ORDERED: FAMOTIDINE 20 MG TAB PO ONE (13:00)
[2018-10-19] MEDS ORDERED: NORMOSOL R SOLN(*) 1000 ML BAG 1,000 ML IV PRN (13:00)
[2018-10-19] MEDS ORDERED: MIDAZOLAM 2 MG/2 ML VIAL IVP PRN (13:00)
[2018-10-19] MEDS ORDERED: PROPOFOL EMUL(*) 10MG/ML 20 ML 20 ML ONE (13:53)
[2018-10-19] MEDS ORDERED: NEOMYCIN/POLYMYX/BACITR 30 GM TP ONE (13:53)
[2018-10-19] MEDS ORDERED: EPINEPHrine HCL 30 MG/30 ML ONE (13:53)
[2018-10-19] MEDS ORDERED: DEXAMETHASONE SOD PHOS 10MG/ML ONE (13:53)
[2018-10-19] MEDS ORDERED: ONDANSETRON 4 MG/2 ML VIAL ONE (13:53)
[2018-10-19] MEDS ORDERED: MINERAL OIL LIGHT 10 ML VIAL ONE (13:53)
[2018-10-19] MEDS ORDERED: ROPIVACAINE 0.5% 20 ML VIAL ONE (13:53)
--- NOTE | 2018-10-19 15:30 | Short(Outpt) Discharge Summary ---
Discharge Summary Reason for Hosp/Final Diag: (1) Wound of right lower extremity Status: Chronic Hospital Course & Plan: Right lower leg STSG completed without problems. Departure Discharge to: Home, Self Care Discharge Instructions Home Meds Active Scripts Lisinopril (LISINOPRIL) 20 Mg Tablet, 20 MG PO QDAY for 90 Days, #90 TAB 4 Refills Prov:JAMSHID VITAL MD 09/10/18 Sulfasalazine (SULFASALAZINE) 500 Mg Tablet, 1 TAB PO BID for 90 Days, #180 TAB 4 Refills PRN Prov:JAMSHID VITAL MD 08/28/18 Rivastigmine Tartrate (RIVASTIGMINE) 3 Mg Capsule, 1 CAP PO BID for 90 Days, #180 CAPSULE 4 Refills Prov:JAMSHID VITAL MD 05/29/18 Budesonide (BUDESONIDE EC) 3 Mg Capdr...er, 1 CAP PO DAILY, #90 CAP Prov:JAMSHID VITAL MD 05/28/18 Reported Medications Aspirin (ASPIR 81) 81 Mg Tablet.dr, 1 TAB PO QDAY 09/08/17 Calcium Carbonate/Vitamin D3 (CALTRATE 600 + D TABLET) 1 Each Tablet, 1 EACH PO DAILY 05/26/17 Acetaminophen (TYLENOL EXTRA STRENGTH) 500 Mg Tablet, 1 TAB PO QDAY 05/26/17 Mu-Vits-Min Th/Lycopene/Lutein (CENTRUM SILVER TABLET) 1 Each Tablet, 1 EACH PO QDAY 05/26/17 Oxygen (OXYGEN) Inha, 2.5 L INH HS, L 04/19/17 Metoprolol Tartrate (METOPROLOL TARTRATE) 25 Mg Tablet, 1.5 TAB PO BID 04/19/17 Follow up Referrals: General Surgery - 10/19/18 @ Surgery, General with JET TORRES MD You have a follow up appointment scheduled for 10/24/18, at 4:30pm. Diet: Regular Activity: As Tolerated Special Instructions: Leave all the dressings/wraps in place until I see you back in my office on October 24, 2018 at 4:30 and I'll remove them at that appointment. Please don't get the dressings wet. Take an over the counter stool softener such as dulcolax or docusate twice each day until you're having regular soft, easy to pass, bowel movements. Problem Qualifiers (1) Wound of right lower extremity: Encounter type: subsequent encounter Qualified Codes: S81.801D - Unspecified open wound, right lower leg, subsequent encounter JET TORRES MD Oct 19, 2018 15:30
[2018-10-19] MEDS ORDERED: ACETAMINOPHEN(*)1000 MG/100 ML 100 ML IVPB ONE (15:34)
--- NOTE | 2018-10-19 15:38 | Post Operative Progress Note ---
Post Operative Progress Note Date: Oct 19, 2018 Time: 15:30 Surgeon: Jeff Dictation number: [id number] Anesthesia: LMA by Dr. Gonsalez Pre-Op Diagnosis: Chronic wound on right lower leg Post-Op Diagnosis: DEYANIRA Findings: None Procedure(s): Split thickness skin graft from right thigh to right lower leg wound Specimen Removed:(May be N/A): None Complications: None Total Tourniquet Time: None Splint: None Fluids: See anesthesia record Estimated Blood Loss: Minimal Date OP Note Dictated: Oct 19, 2018 Time OP Note Dictated: 15:31 JET TORRES MD Oct 19, 2018 15:38
[2018-10-19] MEDS ORDERED: ACETAMINOPHEN 1000 MG/100 ML IVPB ONE (15:45)
[2018-10-19 16:00] VITALS: BP 196/82
[2018-10-19 16:15] VITALS: BP 176/74
[2018-10-19] MEDS ORDERED: fentaNYL CITR 100 MCG/2 ML AMP ONE (16:16)
--- NOTE | 2018-10-19 16:28 | NUR ---
SBAR REPORT TO CAROLINE ANNE RN. PT REPORTS PAIN IS DOWN TO 2/10 TO LEG.
[2018-10-19 16:30] VITALS: BP 168/85
[2018-10-19 16:45] VITALS: BP 168/76
[2018-10-19 16:59] VITALS: BP 197/83
--- NOTE | 2018-10-19 22:32 | OPERATIVE REPORT 1 ---
EVENT DATE: October 19, 2018 SURGEON: Carlos Aguilar MD ANESTHESIOLOGIST: Noah Gonsalez MD ANESTHESIA: LMA. PREOPERATIVE DIAGNOSIS Chronic right lower leg wound. POSTOPERATIVE DIAGNOSIS Chronic right lower leg wound. PROCEDURE PERFORMED Split-thickness skin graft transferred from right thigh to right lower leg wound. COMPLICATIONS None. CONDITION Stable. BLOOD LOSS Minimal. INDICATIONS This is an 88-year-old female who slipped on the ice and fell a little over a month ago, and she developed a subcutaneous hematoma on the medial aspect of her right lower leg. I was consulted after it appeared to become infected, so I brought her to surgery, unroofed the hematoma, and cleaned it out. This revealed a nice healthy wound bed below, and we have been performing wound care. A nice layer of granulation tissue has developed. I discussed continuing with wound care until it heals by secondary intention versus trying to skin graft to see if we can expedite healing, and she and her decided to proceed with a skin graft. DESCRIPTION OF PROCEDURE Patient was brought to the operating room and placed supine on the operating table. LMA anesthesia was administered, and her right lower extremity was prepped and draped from the hip down to the tip of the toes circumferentially and draped in a sterile fashion. I then applied mineral oil to the skin over the lateral thigh and used a 3-inch dermatome blade at 0.18 inches thick and obtained a nice 3-inch x 3-inch piece of split-thickness skin graft from her lateral right thigh. I then meshed it at a 3:1 ratio and applied it dermis side down onto the wound bed and then trimmed the edges off so it just abutted the edges of the wound bed. I then placed elias around the edges and one staple in the middle to hold it down to the wound bed. I then placed antibiotic ointment-laden cotton balls inside of a Kerlix and rolled it up into a ball and placed it on the graft. I then sewed it down by using 0 silk sutures through the elisa and tacking the buttress down with the silk. I also applied epinephrine-soaked gauze to her donor site on her thigh, and it was hemostatic when this was completed. I cut a piece of Xeroform to the exact dimensions of the donor site and placed it on there, and then I placed 4 x 4 gauze on top of this, and then wrapped her thigh with 6-inch Coban wraps. I then placed 4 x 4 gauze over the buttress on her right lower leg, and then lower leg was wrapped in Kerlix and 4-inch Coban wrap. She was then awakened, and LMA removed. She was transported to the recovery room in stable condition having tolerated the procedure without any apparent problems. LORENE
== END 2018-10-19 16:00 | disposition home or self-care (01) ==
LOC: OR 00:28
PROVIDERS: ATTEND Surgery
DX: S81.801D Unspecified open wound, right lower leg, subsequent encounter (principal)
CPT/HCPCS: 15100; A9270; J0171; J0690; J1100; J2405; J2704; J2795; J3010; J7050

== ENCOUNTER → 2019-03-04 | Outpatient (CLI) | payer MEDICARE, OTHER ==
[~2019-03-04] MED LIST changes: -OMEP-125 PO; +OMEP-126 PO
[2019-03-04 14:54] LABS: PLATELET COUNT, AUTOMATED 189 K/uL (150-450)
== END ==
LOC: LAB 14:25
PROVIDERS: ATTEND Family Medicine
DX: I10 Essential (primary) hypertension (principal)
CPT/HCPCS: 36415; 82310; 82374; 82435; 82565; 82947; 84132; 84295; 84520; 85025